=== PATIENT | female | born 1960 ===

== ENCOUNTER 2023-03-19 11:11 | Emergency (ER) | payer OTHER, SELFPAY ==
[2023-03-19 11:13] VITALS: BP 147/78; PULSE 79; RESP 18; TEMP 36.8; O2SAT 99; BMI 29.3
--- NOTE | 2023-03-19 11:14 | ED_ITS ---
[facility] - General Adult General Chief complaint: Eye Problems Stated complaint: liquid out of eye / pain Time Seen by Provider: 03/19/23 13:02 Source: patient, RN notes reviewed and old records reviewed Mode of arrival: ambulatory History of Present Illness HPI narrative: 62-year-old female with no significant past medical history presenting to the ED complaining of left eye pain & clear drainage since last night. Also reports acute on chronic left-sided headache/behind eye pain x years, admits has been seen by air brake mechanic in the past and told her posterior eye is unremarkable. States this pain is unchanged. Admits to foreign body sensation in L eye today. Denies known injury, fall/trauma, vision change/loss, nausea/vomiting. Denies wearing glasses or contacts Onset (ago): hour(s) Related Data Previous Rx's Medication Instructions Recorded erythromycin 5 mg/gram (0.5 %) eye 0.5 inch ophthalmic (eye) QID 7 03/19/23 ointment days #3.5 grams Allergies Allergy/AdvReac Type Severity Reaction Status Date / Time latex Allergy Itching Verified 03/19/23 11:17 Penicillins [PCN] Allergy Itching Verified 03/19/23 11:17 Review of Systems Review of Systems: Constitutional: No Fever, No Chills, No Fatigue, No Malaise ENT/Mouth: No Ear Pain, No Nasal Congestion, No sore throat, No Rhinorrhea, No Swallowing Difficulty Eyes: + Eye Pain, No Swelling, No Redness, + Foreign Body sensation, + Discharge, No Vision Changes Cardiovascular: No Chest Pain, No SOB Respiratory: No Cough, No Sputum, No Wheezing, No Smoke Exposure, No Dyspnea Gastrointestinal: No Nausea, No Vomiting, No Diarrhea, No Constipation, No Abd ominal pain Musculoskeletal: No joint pain, No Myalgia Skin: No Skin Lesions, No rash Neuro: No Weakness,No Dizziness, + Headache Yes all other systems are reviewed and are negative Constitutional: Constitutional: Reports as per [facility] Past Medical History Attestation statement: The following information was validated with the patient. Source: old records reviewed Social History Social History Advance Directives: No Advance Directives Information Provided: Yes Physical Exam ED Vital Signs: Vital Signs - 24 hr 03/19/23 11:13 Temperature 98.3 F Pulse Rate 79 Respiratory Rate 18 Blood Pressure 147/78 H Pulse Oximetry 99 Oxygen Delivery Method Nasal Cannula BMI result Body Mass Index 29.3 Const General: cooperative, healthy appearing and no acute distress Orientation/consciousness: patient oriented x3 Limitations: no limitations HENMT Head: Yes normal to inspection and Yes atraumatic Ears: hearing grossly normal bilaterally and external ears normal General nose exam: Normal external nose present Face and sinus: Yes normal facial exam Mouth: Normal oral and palatal mucosa present Throat: Yes posterior oropharynx normal, Yes uvula midline, No uvula laterally displaced and No uvular edema Eyes Other: + small erythematous dot to left upper eyelid (chronic per patient). No periorbital swelling, crepitus, erythema warmth. No appreciable drainage. PERRLA. EOM intact without pain. No evidence of globe rupture. No ulceration General: appearance normal, both eyes and all related structures Alignment and Position: alignment normal Periorbital: periorbital findings normal Conjunctivae: conjunctivae normal Corneas: corneas abnormal on the left fluorescein used and abrasion (03:00 o'clock, small abrasions, no appreciable FB) diffuse and fluorescein used Pupils: Equal, round and reactive pupils present EOM: EOMs intact bilaterally Direct Ophthalmoscopy: normal light reflex and no photophobia Neck Neck: Yes normal visual inspection, Yes no meningeal signs and Yes supple Resp Effort & Inspection: normal respiratory effort and no respiratory distress Cardio Rate: regular rate Skin Rashes: no rashes Wounds: no wounds Neuro General: patient oriented x3, tone normal and no meningeal signs Cranial nerves: Yes Equal, round and reactive pupils present Gait exam (Neuro): Normal gait present Extrem General: Yes normal to inspection Course Course Course Narrative: This is an RME: Additional HPI, ROS, PE not included below will be deferred to primary provider. This is a [id number]-female presenting to the emergency department with a complaint of left eye pain and drainage since last night. No changes in vision. Conjunctiva does not appear to be injected. Not itchy. Pupils equal and react normally to light. When asked where the pain is, she points to above left eyelid. Patient stable to return back to the waiting room until treatment room becomes available. Medications Administered Discontinued Medications Generic Name Dose Route Start Last Admin Trade Name Freq PRN Reason Stop Dose Admin Fluorescein Sodium 1 strip 03/19/23 13:02 03/19/23 13:06 Fluorescein Sodium Strip EYE-LEFT 03/19/23 13:03 1 strip ONCE ONE Administration Tetracaine HCl 1 drop 03/19/23 13:02 03/19/23 13:06 Tetracaine Hcl/Pf 0.5% Oph Pat 4 Ml Drops EYE-LEFT 03/19/23 13:03 1 drop ONCE ONE Administration Medical Decision Making Medical Decision Making MDM Narrative: 62-year-old female with no significant past medical history presenting to the ED complaining of left eye pain & clear drainage since last night. On exam vital signs stable, NAD, nontoxic appearing, physical exam as above. Visual acuity 20/70 to L eye, fluorescein used w/ small appreciable abrasions at 03:00 o'clock position. No evidence of ulceration, no dendrites. No evidence of preseptal/septal cellulitis, globe rupture, or purulent drainage. EOMs intact without entrapment. Cranial nerves intact, no facial tenderness. Concern for corneal abrasion vs conjunctivitis. Lower suspicion for giant cell arteritis, trigeminal neuralgia, or CVA Plan: Ophthalmic antibiotics, ophthalmology follow-up Please refer to course for remaining clinical decision making, interpretation of labs/imaging results, and discussions with consultants and/or family members. Differential Diagnosis Differential Diagnoses: The differential diagnosis associated with the presentation includes As above Admission/Observation Consideration of admission/observation: Escalation of care including admission/observation considered External Record Review External record reviewed: Inpatient record, Office record, Outpatient record, Prior outpatient labs, Prior outpatient radiology, Primary care record and Outside ED record Tests considered The following testing was considered but not selected: As above Discharge Plan Discharge Clinical Impression: Corneal abrasion Patient Disposition: Home, Self-Care Instructions: Corneal Abrasion (DC) Additional Instructions: You have small scratches in her eye. Erythromycin ointment is topical antibiotic ointment, please apply as prescribed You need to follow-up with an air brake mechanic, call to make an appointment If symptoms persist or worsen, you develop swelling, redness, vision change or loss return to the ED Tienes daisy?os rasgu?os en antunez jp. El angelika?ento de eritromicina es un angelika?ento antibi?uyen t?zuri, apl?quelo seg?n lo prescrito Necesita seguimiento con un oftalm?logo, llame para hacer nataliia noam Si los s?ntomas persisten o empeoran, desarrolla hinchaz?n, enrojecimiento, cambio o p?rdida de la visi?n. Regrese al servicio de urgencias. Prescriptions: New erythromycin 5 mg/gram (0.5 %) ointment 0.5 inch ophthalmic (eye) QID 7 Days Qty: 3.5 0RF Referrals: Ritesh Nayak [Physician] - 3 days Print Language: Korean
[2023-03-19] MEDS: Tetracaine HCl/PF 0.5% Oph Sol 4 ML DROPS 1 DROP EYE-LEFT (13:06)
[2023-03-19] MEDS: Fluorescein Sodium STRIP 1 STRIP EYE-LEFT (13:06)
--- NOTE | 2023-03-19 13:33 | MHC.EDTECH ---
PT was about to read Line 3- with no Errors. PT was unable to see Line 4 - was able to see the black markings but unable to identify the correct letters.
== END 2023-03-19 13:59 | disposition home or self-care (01) ==
PROVIDERS: Emergency Provider Student in an Organized Health Care Education/Training Program
DX: S05.02XA Injury of conjunctiva and corneal abrasion without foreign body, left eye, initial encounter (principal); X58.XXXA Exposure to other specified factors, initial encounter; Y93.9 Activity, unspecified; Y92.9 Unspecified place or not applicable; Y99.9 Unspecified external cause status
CPT/HCPCS: 99282; 99283